=== PATIENT | female | born 1985 | race African-American/Black ===

== ENCOUNTER 2018-08-20 15:41 | Emergency (ER) | payer MEDICAID ==
[~2018-08-20] VITALS: Ht 167.6 cm; Wt 110.0 kg
[2018-08-20] MEDS ORDERED: METHYLPREDNISOLONE SOD SUCC 125 MG/2 ML VIAL IV STA (16:49)
[2018-08-20] MEDS ORDERED: IPRATROPIUM BROMIDE (0.02%) 0.5MG/2.5ML NEB HHN STA ×2 (16:49→18:07)
[2018-08-20] MEDS ORDERED: ALBUTEROL (0.083%) 2.5MG/3ML NEB HHN STA ×2 (16:49→18:07)
[2018-08-20] MEDS ORDERED: MAGNESIUM 2 G PREMIX 50 ML IV ONE (18:15)
[2018-08-20 18:19] LABS: BASOPHILS % 0.5 % (0.0-2.0); EOSINOPHILS % 4.5 % (0.0-5.0); HEMATOCRIT. 43.9 % (36.0-48.0); HEMOGLOBIN. 14.6 g/dL (12.0-16.0); LYMPHOCYTES % 23.6 % (20.0-50.0); MEAN CORPUSCULAR HEMOGLOBIN 27.8 pg (28.0-32.0); MEAN CORPUSCULAR VOLUME 83.4 fL (81.0-99.0); MEAN PLATELET VOLUME 10.1 fl (7.4-10.4); MONOCYTES % 5.7 % (2.0-8.0); NEUTROPHILS % 65.7 % (40.0-76.0); PLATELET 307 x1000/uL (130-400); RED BLOOD CELL COUNT 5.26 mill/uL (4.2-5.4)
[2018-08-20 18:21] LABS: CHLORIDE 104 mEq/L (98-107)
[2018-08-20 18:22] LABS: PROTHROMBIN TIME 9.6 sec (9.1-11.1)
[2018-08-20 18:41] LABS: CLARITY URINE CLEAR (CLEAR); COLOR URINE YELLOW (YELLOW); KETONES URINE NEGATIVE (NEGATIVE); LEUKOCYTE ESTERASE URINE NEGATIVE (NEGATIVE); NITRITE URINE NEGATIVE (NEGATIVE); OCCULT BLOOD URINE NEGATIVE (NEGATIVE); PH URINE 6.5 (4.5-8.0); PROTEIN URINE NEGATIVE (NEGATIVE); SPECIFIC GRAVITY URINE 1.014 (1.005-1.030); UROBILINOGEN URINE 0.2 E.U./dL (0.2-1.0)
[2018-08-20] MEDS ORDERED: SODIUM CHLORIDE 0.9% 1,000 ML IV ONE ×2 (18:58→20:00)
[2018-08-20 22:44] VITALS: BP 133/88
== END 2018-08-20 22:52 | disposition home or self-care (01) ==
LOC: ER 15:41
DX: J45.901 Unspecified asthma with (acute) exacerbation (principal)
CPT/HCPCS: 36415; 71045; 80053; 81003; 81025; 85025; 85610; 94640; 96374; 99285; J2930; J7030; J7611; Z7610

== ENCOUNTER 2018-10-04 14:35 | Emergency (ER) | payer MEDICAID ==
[~2018-10-04] VITALS: Ht 167.6 cm; Wt 100.0 kg
[2018-10-04] MEDS ORDERED: METHYLPREDNISOLONE SOD SUCC 125 MG/2 ML VIAL IV STA (15:48)
[2018-10-04] MEDS ORDERED: SODIUM CHLORIDE 0.9% 1,000 ML IV ONE (15:48)
[2018-10-04] MEDS ORDERED: IPRATROPIUM/ALBUTEROL 0.5-3(2.5)MG/3ML NEB HHN ONE ×2 (16:00→19:45)
[2018-10-04] MEDS ORDERED: MAGNESIUM 2 G PREMIX 50 ML IV ONE (16:00)
[2018-10-04] MEDS ORDERED: AZITHROMYCIN 500 MG TABLET PO ONE (16:00)
[2018-10-04 16:41] LABS: BASOPHILS % 0.2 % (0.0-2.0); EOSINOPHILS % 2.6 % (0.0-5.0); HEMATOCRIT. 42.5 % (36.0-48.0); HEMOGLOBIN. 14.3 g/dL (12.0-16.0); LYMPHOCYTES % 14.2 % (20.0-50.0); MEAN CORPUSCULAR HEMOGLOBIN 28.2 pg (28.0-32.0); MEAN CORPUSCULAR VOLUME 83.5 fL (81.0-99.0); MEAN PLATELET VOLUME 9.9 fl (7.4-10.4); MONOCYTES % 11.8 % (2.0-8.0); NEUTROPHILS % 71.2 % (40.0-76.0); PLATELET 228 x1000/uL (130-400); RED BLOOD CELL COUNT 5.09 mill/uL (4.2-5.4); RED CELL DISTRIBUTION WIDTH 14.8 % (11.6-14.6)
[2018-10-04 16:44] LABS: CHLORIDE 101 mEq/L (98-107)
[2018-10-04 16:47] LABS: HCG SCREEN NEGATIVE
[2018-10-04] MEDS ORDERED: ACETAMINOPHEN 325MG TABLET PO ONE (17:45)
[2018-10-04 19:57] VITALS: BP 113/74
== END 2018-10-04 19:57 | disposition home or self-care (01) ==
LOC: ER 14:35
DX: J45.909 Unspecified asthma, uncomplicated (principal)
CPT/HCPCS: 36415; 71045; 80053; 83880; 84484; 84703; 85025; 87040; 87086; 87804; 94640; 96365; 96375; 99284; J2930; J3475; J7030; J7620; Z7610

== ENCOUNTER 2019-09-29 18:17 | Emergency (ER) | payer SELFPAY ==
[~2019-09-29] VITALS: Ht 167.6 cm; Wt 109.0 kg
[2019-09-29] MEDS ORDERED: IPRATROPIUM BROMIDE (0.02%) 0.5MG/2.5ML NEB HHN STA (20:22)
[2019-09-29] MEDS ORDERED: ALBUTEROL (0.083%) 2.5MG/3ML NEB HHN STA (20:22)
[2019-09-29] MEDS ORDERED: PREDNISONE 20MG TABLET PO ONE (20:45)
[2019-09-29 22:00] VITALS: BP 150/88
== END 2019-09-29 22:37 | disposition home or self-care (01) ==
LOC: ER 18:17
DX: J45.901 Unspecified asthma with (acute) exacerbation (principal)
CPT/HCPCS: 94644; 99285; J7512; J7611; Z7610

== ENCOUNTER 2019-10-15 05:10 | Inpatient (IN) | payer SELFPAY ==
[~2019-10-15] VITALS: Ht 167.6 cm; Wt 120.7 kg
[2019-10-15] VITALS (8 sets, daily range): BP systolic 127–176; BP diastolic 70–104
[2019-10-15] MEDS ORDERED: METHYLPREDNISOLONE SOD SUCC 125 MG/2 ML VIAL IV STA (05:15)
[2019-10-15] MEDS ORDERED: ALBUTEROL (0.083%) 2.5MG/3ML NEB HHN STA (05:15)
[2019-10-15] MEDS ORDERED: ONDANSETRON HCL 4MG/2ML INJ IV STA (05:15)
[2019-10-15] MEDS ORDERED: IPRATROPIUM BROMIDE (0.02%) 0.5MG/2.5ML NEB HHN STA (05:15)
[2019-10-15 05:38] LABS: BASOPHILS % 0.4 % (0.0-2.0); EOSINOPHILS % 1.6 % (0.0-5.0); HEMATOCRIT. 44.9 % (36.0-48.0); HEMOGLOBIN. 14.9 g/dL (12.0-16.0); LYMPHOCYTES % 14.4 % (20.0-50.0); MEAN CORPUSCULAR HEMOGLOBIN 28.1 pg (28.0-32.0); MEAN CORPUSCULAR VOLUME 84.7 fL (81.0-99.0); MEAN PLATELET VOLUME 9.4 fl (7.4-10.4); MONOCYTES % 6.2 % (2.0-8.0); NEUTROPHILS % 77.4 % (40.0-76.0); PLATELET 281 x1000/uL (130-400); RED CELL DISTRIBUTION WIDTH 14.5 % (11.6-14.6)
[2019-10-15 05:55] LABS: CHLORIDE 105 mEq/L (98-107)
[2019-10-15] MEDS ORDERED: SODIUM CHLORIDE 0.9% 1000ML BAG (SEPSIS BOLUS) IV ONE (06:00)
[2019-10-15] MEDS ORDERED: IPRATROPIUM/ALBUTEROL 0.5-3(2.5)MG/3ML NEB ONE (08:48)
[2019-10-15] MEDS ORDERED: POTASSIUM CHLORIDE 20MEQ TABLET SR PO NR (09:00)
[2019-10-15] MEDS ORDERED: DIPHENHYDRAMINE 50MG/ML VIAL IV PRN (09:00)
[2019-10-15] MEDS ORDERED: IPRATROPIUM/ALBUTEROL 0.5-3(2.5)MG/3ML NEB HHN SCH (09:00)
[2019-10-15] MEDS ORDERED: IPRATROPIUM/ALBUTEROL 0.5-3(2.5)MG/3ML NEB NEB PRN (09:00)
[2019-10-15] MEDS ORDERED: LORAZEPAM 0.5MG TABLET PO PRN (09:00)
[2019-10-15] MEDS ORDERED: CLONIDINE 0.1MG TABLET PO PRN (09:00)
[2019-10-15] MEDS ORDERED: ONDANSETRON HCL 4MG/2ML INJ IV PRN (09:00)
[2019-10-15] MEDS ORDERED: MAGNESIUM/ALUMINUM HYDROXIDE/SIMETHICONE 30ML UDC PO PRN (09:00)
[2019-10-15] MEDS ORDERED: ACETAMINOPHEN 325MG TABLET PO PRN (09:00)
[2019-10-15 09:20] LABS: BG BASE EXCESS -8.8 mmol/L (-2.0-2.0); BG BILEVEL POS AIRWAY PRESSURE 15/5; BG CARBOXYHEMOGLOBIN 0.4 % (0.5-1.5); BG DEOXYHEMOGLOBIN 1.6 % (0.0-5.0); BG HCO3 ACT 18.2 mmol/L (22.0-26.0); BG METHEMOGLOBIN 0.4 % (0.0-1.5); BG OXYGEN SATURATION 98.4 % (92.0-98.5); BG OXYHEMOGLOBIN 97.6 % (94.0-97.0); BG PCO2 43.2 mmHg (35.0-45.0); BG PH 7.243 (7.350-7.450); BG PO2 141.4 mmHg (75.0-100.0); BG SAMPLE SITE RIGHT RADIAL; BG TOTAL HEMOGLOBIN 14.5 g/dL (12.0-18.0); BG VENT MODE MASK - BIPAP; BG VENT RATE 18 set
[2019-10-15] MEDS ORDERED: ALBU2.5V13 NEB (09:31)
[2019-10-15] MEDS ORDERED: FAMOTIDINE 20MG TABLET PO SCH (11:00)
[2019-10-15] MEDS: IPRATROPIUM/ALBUTEROL 0.5-3(2.5)MG/3ML NEB HHN SCH ×3 (12:29→21:02)
[2019-10-15] MEDS ORDERED: METHYLPREDNISOLONE SOD SUCC 125 MG/2 ML VIAL IV SCH (14:00)
[2019-10-15] MEDS: SODIUM CHLORIDE 0.9% INJ 3ML FLUSH IVF SCH ×2 (15:01→20:15)
[2019-10-15] MEDS: LEVOFLOXACIN 500MG PREMIX 100 ML IV SCH (16:25)
[2019-10-15] MEDS: FAMOTIDINE 20MG/2ML VIAL IV SCH (20:12)
[2019-10-15] MEDS: METHYLPREDNISOLONE SOD SUCC 125 MG/2 ML VIAL IV SCH (20:13)
[2019-10-15] MEDS: ENOXAPARIN 40MG/0.4ML SYR SUBCUT SCH (20:14)
[2019-10-16] VITALS (11 sets, daily range): BP systolic 125–155; BP diastolic 68–95
[2019-10-16] MEDS: IPRATROPIUM/ALBUTEROL 0.5-3(2.5)MG/3ML NEB HHN SCH ×6 (00:54→19:48)
[2019-10-16] MEDS: METHYLPREDNISOLONE SOD SUCC 125 MG/2 ML VIAL IV SCH ×5 (01:07→23:24)
[2019-10-16 01:52] LABS: CLARITY URINE CLEAR (CLEAR); COLOR URINE YELLOW (YELLOW); KETONES URINE TRACE (NEGATIVE); LEUKOCYTE ESTERASE URINE NEGATIVE (NEGATIVE); NITRITE URINE NEGATIVE (NEGATIVE); OCCULT BLOOD URINE NEGATIVE (NEGATIVE); PROTEIN URINE NEGATIVE (NEGATIVE); SPECIFIC GRAVITY URINE 1.016 (1.005-1.030); UROBILINOGEN URINE 0.2 E.U./dL (0.2-1.0)
[2019-10-16] MEDS: SODIUM CHLORIDE 0.9% INJ 3ML FLUSH IVF SCH ×3 (05:31→22:02)
[2019-10-16 07:26] LABS: HEMATOCRIT. 37.6 % (36.0-48.0); HEMOGLOBIN. 12.3 g/dL (12.0-16.0); MEAN CORPUSCULAR HEMOGLOBIN 27.3 pg (28.0-32.0); MEAN CORPUSCULAR VOLUME 83.5 fL (81.0-99.0); MEAN PLATELET VOLUME 10.3 fl (7.4-10.4); PLATELET 256 x1000/uL (130-400); RED CELL DISTRIBUTION WIDTH 14.4 % (11.6-14.6)
[2019-10-16 08:22] LABS: CHLORIDE 105 mEq/L (98-107)
[2019-10-16 08:35] LABS: PHOSPHORUS 2.2 mg/dL (2.5-4.9)
[2019-10-16] MEDS: ENOXAPARIN 40MG/0.4ML SYR SUBCUT SCH (09:10)
[2019-10-16] MEDS: FAMOTIDINE 20MG/2ML VIAL IV SCH ×2 (09:10→22:01)
[2019-10-16 09:51] LABS: BG BASE EXCESS -2.5 mmol/L (-2.0-2.0); BG CARBOXYHEMOGLOBIN 0.1 % (0.5-1.5); BG DEOXYHEMOGLOBIN 4.4 % (0.0-5.0); BG FRACTION INSPIRED OXYGEN 32; BG HCO3 ACT 22.5 mmol/L (22.0-26.0); BG METHEMOGLOBIN 0.2 % (0.0-1.5); BG OXYGEN SATURATION 95.6 % (92.0-98.5); BG OXYHEMOGLOBIN 95.3 % (94.0-97.0); BG PCO2 39.4 mmHg (35.0-45.0); BG PH 7.374 (7.350-7.450); BG SAMPLE SITE RIGHT RADIAL; BG TOTAL HEMOGLOBIN 13.3 g/dL (12.0-18.0); BG VENT MODE NASAL CANNULA
[2019-10-16] MEDS ORDERED: POTASSIUM PHOS,M-BASIC-D-BASIC 20 MMOL in DEXT 5% WATER 243.3333 ML IV NR (14:00)
[2019-10-16] MEDS: LEVOFLOXACIN 500MG PREMIX 100 ML IV SCH (16:53)
[2019-10-16 20:51] LABS: PLATELET ESTIMATE NORMAL
[2019-10-16] MEDS: ENOXAPARIN 30MG/0.3ML SYR SUBCUT SCH (22:02)
[2019-10-16] MEDS: GUAIFENESIN 200MG/10ML SUGAR FREE UDC PO PRN (23:25)
[2019-10-17] VITALS (7 sets, daily range): BP systolic 119–161; BP diastolic 66–98
[2019-10-17] MEDS: IPRATROPIUM/ALBUTEROL 0.5-3(2.5)MG/3ML NEB HHN SCH ×4 (00:07→11:54)
[2019-10-17] MEDS: METHYLPREDNISOLONE SOD SUCC 125 MG/2 ML VIAL IV SCH ×2 (05:03→13:06)
[2019-10-17] MEDS: SODIUM CHLORIDE 0.9% INJ 3ML FLUSH IVF SCH ×2 (05:06→13:06)
[2019-10-17] MEDS: FAMOTIDINE 20MG/2ML VIAL IV SCH (13:05)
[2019-10-17] MEDS: ENOXAPARIN 30MG/0.3ML SYR SUBCUT SCH (13:06)
[2019-10-17] MEDS: GUAIFENESIN 200MG/10ML SUGAR FREE UDC PO PRN (13:06)
== END 2019-10-17 16:25 | disposition left against medical advice (07) | DRG 133 ==
LOC: ER 05:10 → 5EST 06:03 → ENRESERV 07:22
PROVIDERS: ADMIT Internal Medicine; ATTEND Internal Medicine
PROC: 5A09357 Assistance with Respiratory Ventilation, Less than 24 Consecutive Hours, Continuous Positive Airway Pressure (ICD-10-PCS; principal; 2019-10-15)
PROC: 5A09357 Assistance with Respiratory Ventilation, Less than 24 Consecutive Hours, Continuous Positive Airway Pressure (ICD-10-PCS; 2019-10-15)
DX: J96.90 Respiratory failure, unspecified, unspecified whether with hypoxia or hypercapnia (principal); R65.10 Systemic inflammatory response syndrome (SIRS) of non-infectious origin without acute organ dysfunction; J45.901 Unspecified asthma with (acute) exacerbation; Z68.41 Body mass index [BMI] 40.0-44.9, adult; K30 Functional dyspepsia; E66.9 Obesity, unspecified; F41.9 Anxiety disorder, unspecified; Z53.29 Procedure and treatment not carried out because of patient's decision for other reasons; J20.9 Acute bronchitis, unspecified; F17.210 Nicotine dependence, cigarettes, uncomplicated; Z83.3 Family history of diabetes mellitus
CPT/HCPCS: 36415; 36600; 71045; 80048; 81003; 82375; 82805; 83605; 83735; 83880; 84100; 84145; 84484; 93005; 93970; 94640; 94644; 94660; 99291; J1650; J1956; J2405; J2930; J3490; J7030; J7060; J7611; J7620